=== PATIENT | female | born 1985 | race Caucasian/White ===

== ENCOUNTER 2020-11-18 14:11 | Emergency (ER) | payer OTHER ==
[2020-11-18 15:06] LABS: BASOPHIL 0.5 % (0-2); EOSINOPHIL 2.1 % (0-5); HCT 37.7 % (37.0-47.0); HGB 12.1 g/dl (12.5-16.0); LYMPHOCYTE 22.2 % (15-48); MCH 28.3 pg (25.0-31.0); MCHC 32.1 g/dL (32.0-36.0); MCV 88.3 fL (78.0-100.0); MONOCYTE 7.2 % (0-12); MPV 11.7 fL (6.0-9.5); NEUTROPHIL 67.8 % (41-80); NRBC 0; PLT 240 K/uL (150-400); RBC 4.27 M/uL (4.20-5.40); RDW 15.4 % (11.5-14.0); WBC 8.2 K/uL (4.0-10.5)
[2020-11-18 15:25] LABS: ALBUMIN 3.7 g/dL (3.4-5.0); BILIRUBIN - TOTAL 0.2 mg/dL (0.2-1.0); BUN/CREAT RATIO (CALC) 18.2 RATIO; CREATININE 0.66 mg/dL (0.51-0.95); GLOBULIN (CALCULATION) 4.1 g/dL; POTASSIUM 3.9 mmol/L (3.5-5.1); TOTAL PROTEIN 7.8 g/dL (6.4-8.2)
[2020-11-18] MEDS ORDERED: CEPHALEXIN500 MG PO (16:52)
[2020-11-18] MEDS ORDERED: NORCO 5-325 TA1 EACH PO (16:52)
== END 2020-11-18 17:14 | disposition home or self-care (01) ==
LOC: FER 14:11
PROVIDERS: Emergency Medicine
DX: S67.191A Crushing injury of left index finger, initial encounter (principal); S61.211A Laceration without foreign body of left index finger without damage to nail, initial encounter; Z88.8 Allergy status to other drugs, medicaments and biological substances; W29.8XXA Contact with other powered hand tools and household machinery, initial encounter; Y92.009 Unspecified place in unspecified non-institutional (private) residence as the place of occurrence of the external cause
CPT/HCPCS: 36415; 73140; 80053; 85025; 96374; J2543